=== PATIENT | female | born 1985 | race Caucasian/White ===

== ENCOUNTER 2023-02-18 23:14 | Emergency (ER) | payer OTHER ==
[2023-02-18] MEDS ORDERED: Fluorescein Opthalmic Strip ONE (23:41)
[2023-02-18] MEDS ORDERED: Tetracaine 0.5% PF 4 ML BOT ONE (23:41)
== END 2023-02-19 | disposition home or self-care (01) ==
LOC: NAV ERS 23:14
DX: H10.9 Unspecified conjunctivitis (principal)
CPT/HCPCS: 87070; 87205; 99283